=== PATIENT | female | born 2005 | race Hispanic/Latino ===

== ENCOUNTER 2024-09-25 17:22 | Emergency (ER) | payer OTHER ==
[~2024-09-25] VITALS: Ht 160 cm; Wt 80.4 kg
[2024-09-25 17:27] VITALS: PULSE 110; RESP 18; TEMP 98; O2SAT 96
[2024-09-25] MEDS ORDERED: THERAFLU SEVER1 EAC4 PO (17:43)
[2024-09-25] MEDS ORDERED: IBUPROFEN600 MG PO (17:43)
[2024-09-25] MEDS ORDERED: CEFDINIR300 MG PO (17:43)
== END 2024-09-25 17:56 | disposition home or self-care (01) ==
LOC: FSED 17:27
DX: H66.93 Otitis media, unspecified, bilateral (principal); J06.9 Acute upper respiratory infection, unspecified; R09.89 Other specified symptoms and signs involving the circulatory and respiratory systems; R09.81 Nasal congestion; R05.9 Cough, unspecified; R51.9 Headache, unspecified; Z11.52 Encounter for screening for COVID-19
CPT/HCPCS: 0223U; 83518; 87400; 99283